=== PATIENT | female | born 1970 | race Caucasian/White ===

== ENCOUNTER 2018-01-09 11:00 | Emergency (ER) | payer SELFPAY, MEDICAID ==
[2018-01-09 12:16] LABS: URINE PH (Dip) POC 5.5 (5.0-8.5)
[2018-01-09 12:16] LABS: URINE BLOOD (Dip) POC Negative (NEGATIVE); URINE KETONES (Dip) POC Negative (NEGATIVE); URINE LEUKOCYTE EST (Dip) POC Negative (NEGATIVE); URINE NITRITE (Dip) POC Negative (NEGATIVE); URINE TOTAL PROTEIN POC Negative (NEGATIVE)
[2018-01-09] MEDS: KETOROLAC 30 MG INJ IM (12:22)
== END 2018-01-09 12:41 | disposition home or self-care (01) ==
LOC: FTE 11:00
DX: M54.5 Low back pain (principal); I10 Essential (primary) hypertension; E11.9 Type 2 diabetes mellitus without complications; Z79.84 Long term (current) use of oral hypoglycemic drugs
CPT/HCPCS: 81003; 81025; 96372; 99284-25

== ENCOUNTER 2019-01-31 22:11 | Emergency (ER) | payer OTHER ==
[2019-02-01] MEDS: IBUPROFEN 800 MG TAB PO (00:49)
== END 2019-02-01 00:54 | disposition home or self-care (01) ==
LOC: E/R 22:11
DX: B34.9 Viral infection, unspecified (principal); I10 Essential (primary) hypertension; Z79.84 Long term (current) use of oral hypoglycemic drugs
CPT/HCPCS: 99282; Z7502